=== PATIENT | male | born 1990 | race African-American/Black ===

== ENCOUNTER 2017-01-10 09:19 | Emergency (ER) | payer MEDICAID ==
[~2017-01-10] VITALS: Ht 177.8 cm; Wt 64.0 kg
[2017-01-10] MEDS ORDERED: ONDANSETRON HCL 4MG/2ML VIAL IV STA (11:05)
[2017-01-10] MEDS ORDERED: SODIUM CHLORIDE 0.9% 1,000 ML IV ONE (11:05)
[2017-01-10] MEDS ORDERED: KETOROLAC 30MG/ML VIAL IV ONE (11:15)
[2017-01-10 11:48] LABS: HEMATOCRIT. 46.9 % (42.0-52.0); HEMOGLOBIN. 15.8 g/dL (14.0-18.0); MEAN CORPUSCULAR HEMOGLOBIN 31.6 pg (28.0-32.0); MEAN CORPUSCULAR VOLUME 93.8 fL (80.0-94.0); PLATELET 172 x1000/uL (130-400); RED BLOOD CELL COUNT 5.01 mill/uL (4.7-6.1); RED CELL DISTRIBUTION WIDTH 12.9 % (11.6-14.6)
[2017-01-10 11:54] LABS: PROTHROMBIN TIME 10.5 sec
[2017-01-10 11:55] LABS: CHLORIDE 106 mEq/L (98-107)
[2017-01-10 12:12] LABS: CARBON DIOXIDE 25 mEq/L (21-32)
[2017-01-10 12:18] LABS: CLARITY URINE CLEAR (CLEAR); COLOR URINE YELLOW (YELLOW); GLUCOSE URINE NEGATIVE (NEGATIVE); KETONES URINE 2+ (NEGATIVE); LEUKOCYTE ESTERASE URINE NEGATIVE (NEGATIVE); NITRITE URINE NEGATIVE (NEGATIVE); OCCULT BLOOD URINE NEGATIVE (NEGATIVE); PROTEIN URINE TRACE (NEGATIVE); SPECIFIC GRAVITY URINE 1.031 (1.005-1.030); UROBILINOGEN URINE 0.2 E.U./dL (0.2-1.0)
[2017-01-10 12:41] LABS: *AMPHETAMINES SCREEN URINE NEGATIVE (NEGATIVE); *BARBITURATES SCREEN URINE NEGATIVE (NEGATIVE); *BENZODIAZEPINES SCREEN URINE NEGATIVE (NEGATIVE); *COCAINE SCREEN URINE NEGATIVE (NEGATIVE); CANNABINOID URINE SCREEN PRESUMTIVE POSITIVE (NEGATIVE); METHADONE URINE SCREEN NEGATIVE (NEGATIVE); OPIATES URINE SCREEN NEGATIVE (NEGATIVE); PHENCYCLIDINE URINE SCREEN NEGATIVE (NEGATIVE)
[2017-01-10] MEDS ORDERED: SODIUM CHLORIDE 0.9% 10ML VIAL ONE (13:03)
[2017-01-10] MEDS ORDERED: IOHEXOL-300 100 ML BOTTLE ONE (13:03)
[2017-01-10 14:16] LABS: PLATELET ESTIMATE NORMAL
[2017-01-10] MEDS ORDERED: MORPHINE SULFATE 2 MG/ML CPJ (NOT FOR IM USE) IV NR (15:00)
[2017-01-10] MEDS ORDERED: ONDANSETRON HCL 4MG/2ML VIAL IV NR (15:00)
[2017-01-10 17:36] VITALS: BP 109/56
== END 2017-01-10 17:52 | disposition home or self-care (01) ==
LOC: ER 10:22
DX: R10.30 Lower abdominal pain, unspecified (principal); F12.10 Cannabis abuse, uncomplicated; D72.829 Elevated white blood cell count, unspecified
CPT/HCPCS: 36415; 74177; 80053; 80305; 81001; 83690; 85025; 85610; 96361; 96374; 96375; 96376; 99285; A4216; J1885; J2270; J2405; J7030; Q9967; Z7610